=== PATIENT | female | born 1965 | race Caucasian/White ===

== ENCOUNTER 2019-01-04 12:54 | Emergency (ER) | payer BC ==
[2019-01-04] MEDS ORDERED: Ketorolac 60 MG/2 ML SDV ONE (13:15)
--- NOTE | 2019-01-04 13:20 | EDM.PDOC ---
ED HPI GENERAL MEDICAL PROBLEM - General Chief Complaint: Flank Pain Stated Complaint: KIDNEY PAIN LEFT SIDE Time Seen by Provider: 01/04/19 13:00 Source of Information: Reports: Patient History Limitations: Reports: No Limitations - History of Present Illness INITIAL COMMENTS - FREE TEXT/NARRATIVE: This patient presents to the ED for evaluation of left flank pain. She states she had some pain in the same a couple of weeks ago that went away without intervention. The pain started earlier today and is sharp and localized to the left flank area. She also has some pain in her left pelvic area. She denies dysuria, frequency or urgency. She has a history of kidney stones. She denies other concerns or complaints. Onset: Today, Sudden Onset Date: 01/04/19 Onset Time: 10:00 Duration: Getting Worse Location: Reports: Upper Extremity, Left Severity: Moderate Improves with: Reports: None Worsens with: Reports: None Associated Symptoms: Reports: No Other Symptoms ED ROS GENERAL - Review of Systems Review Of Systems: See Below Constitutional: Denies: Fever HEENT: Reports: No Symptoms Respiratory: Denies: Shortness of Breath, Cough Cardiovascular: Denies: Chest Pain Endocrine: Reports: No Symptoms GI/Abdominal: Reports: Decreased Appetite. Denies: Abdominal Pain, Nausea, Vomiting : Reports: Flank Pain. Denies: Frequency, Hematuria, Urgency Musculoskeletal: Reports: No Symptoms Skin: Reports: No Symptoms Neurological: Reports: No Symptoms ED EXAM, RENAL/ - Physical Exam Exam: See Below Exam Limited By: No Limitations General Appearance: Alert, WD/WN, Mild Distress Eye Exam: Bilateral Eye: PERRL Ears: Normal External Exam Nose: Normal Inspection Throat/Mouth: Normal Inspection Head: Atraumatic, Normocephalic Neck: Supple, Non-Tender, Full Range of Motion Respiratory/Chest: No Respiratory Distress, Lungs Clear, Normal Breath Sounds, No Accessory Muscle Use Cardiovascular: Regular Rate, Rhythm GI/Abdominal: Normal Bowel Sounds, Soft, Non-Tender, No Organomegaly, Other ( mild left pelvic tenderness) Neurological: Alert, Oriented Psychiatric: Normal Affect, Normal Mood Skin Exam: Warm, Dry, Intact Course - Orders/Labs/Meds Orders: Active Orders 24 hr Category Date Time Status Kidney Stone Protocol [CT] Stat Exams 01/04/19 14:16 Ordered Labs: Laboratory Tests 01/04/19 Range/Units 14:00 Urine Color Yellow Urine Appearance Cloudy (CLEAR) Urine pH 6.0 (5.0-8.0) Ur Specific [place] >= 1.030 (1.003-1.030) Urine Protein 100 H (NEGATIVE) mg/dL Urine Glucose (UA) Negative (NEGATIVE) mg/dL Urine Ketones Negative (NEGATIVE) mg/dL Urine Occult Blood Large H (NEGATIVE) Urine Nitrite Negative (NEGATIVE) Urine Bilirubin Negative (NEGATIVE) Urine Urobilinogen 0.2 (0.2-1.0) E.U./dL Ur Leukocyte Esterase Negative (NEGATIVE) Urine RBC >100 H /HPF Urine WBC 0-5 H /HPF Ur Squamous Epith Cells Few /HPF Urine Bacteria Few /HPF Meds: Medications Discontinued Medications Generic Name Dose Route Start Last Admin Trade Name Freq PRN Reason Stop Dose Admin Ketorolac Tromethamine Confirm 01/04/19 13:15 01/04/19 13:10 Toradol Administered 01/04/19 13:16 60 mg Dose Administration 60 mg .ROUTE .STK-MED ONE Morphine Sulfate 5 mg 01/04/19 14:18 01/04/19 13:25 Morphine IM 01/04/19 14:19 5 mg ONETIME ONE Administration - Re-Assessments/Exams Free Text/Narrative Re-Assessment/Exam: 01/04/19 15:49 This patient presents with left flank pain. Differential Diagnosis considered included ureterolithiasis, UTI, pyelonephritis, appendicitis, colitis, GIB, diverticulitis, volvulus, ectopic, cyst, , Signs and symptoms consistent with ureterolithiasis. This was confirmed on CT. Given the size of the stone, it is likely that the patient will be able to pass this. Patients pain is controlled in the ED and she was given flomax and vicodin for home use. There is no signs of infected stone. Tolerates PO. Patient is hemodynamically stable in the ED and plan is home with recheck by primary care physician in 2-3 days if she is not better. She should return to the ED if symptoms worsen. Ureterolithiasis precautions for home. Questions were answered. Departure - Departure Time of Disposition: 14:00 Disposition: 20 Condition: Good Clinical Impression: Kidney stone on left side - Discharge Information *PRESCRIPTION DRUG MONITORING PROGRAM REVIEWED*: No *COPY OF PRESCRIPTION DRUG MONITORING REPORT IN PATIENT RONALD: No Instructions: Acetaminophen; Hydrocodone tablets or capsules, Kidney Stones, [id number], Tamsulosin capsules Referrals: PCP,None [Primary Care Provider] - Forms: ED Department Discharge Care Plan Goals: flomax 0.4mg daily x 5 days, vicodin 5/325 one or two tablets every 6 to 8 hours as needed for severe pain. - My Orders Last 24 Hours: My Active Orders 01/04/19 14:16 Kidney Stone Protocol [CT] Stat - Assessment/Plan Last 24 Hours: My Active Orders 01/04/19 14:16 Kidney Stone Protocol [CT] Stat
[2019-01-04] MEDS ORDERED: Morphine 10 MG/ML Syringe IM ONE (14:18)
--- NOTE | 2019-01-04 18:16 | CT ---
DATE OF SERVICE: 01/04/19 CLINICAL DATA: kidney stone UNENHANCED ABDOMEN AND PELVIC CT: Multislice acquisition through the abdomen and pelvis without IV or oral contrast was performed. No priors. The lung bases are clear. The liver is normal size with homogeneous attenuation. No focal hepatic lesions. The gallbladder appears normal. No calcified gallstones. The spleen appears normal. The pancreas appears normal. The right and left adrenals appear normal. There are small nonobstructing renal calculi bilaterally. There is a 5 mm distal ureteral calculus on the left located in the distal left ureter just proximal to the ureterovesical junction. There is hydronephrosis and hydroureter proximal to it consistent with obstruction. The left kidney also appears to be edematous with minimal perinephric fat stranding most likely related to obstruction. Pyelonephritis should be considered. The kidneys and collecting systems are otherwise unremarkable. There is a small amount of fluid within the bladder. It appears grossly normal. The appendix is not dilated. No evidence of appendicitis. There is diverticulosis of the colon. No evidence of diverticulitis. There is a 4.2 cm fluid density lesion within the right ovary. This may be multiple physiologic ovarian cysts. A septated ovarian lesion including cystic ovarian neoplasm should at least be considered. There is a small low density lesion in the left ovary also. Followup ultrasound is recommended to further evaluate these. No free air. No free fluid. No dilated loops of bowel. No adenopathy. No aortic aneurysm. There is a small umbilical hernia containing fat. IMPRESSION: 1. A 5 mm distal ureteral calculus on left with obstruction. 2. Enlarged right ovary with fluid density lesions which may be multiple physiologic ovarian cysts or a septated cystic lesion. Followup ultrasound is recommended to further evaluate and confirm resolution. 3. Other findings as discussed above. [id number] [facility]
== END 2019-01-04 15:10 | disposition home or self-care (01) ==
LOC: LB.ED 12:54
DX: N20.2 Calculus of kidney with calculus of ureter (principal)
CPT/HCPCS: 74176; 81001; 96372; 99284; J1885; J2270

== ENCOUNTER 2020-09-15 20:03 | Emergency (ER) | payer BC ==
[2020-09-15] MEDS ORDERED: Ketorolac 60 MG/2 ML SDV IM ONE (20:19)
--- NOTE | 2020-09-15 20:37 | EDM.PDOC ---
ED HPI GENERAL MEDICAL PROBLEM - General Chief Complaint: General Stated Complaint: hematuria Time Seen by Provider: 09/15/20 20:15 Source of Information: Reports: Patient History Limitations: Reports: No Limitations - History of Present Illness INITIAL COMMENTS - FREE TEXT/NARRATIVE: left flank plan, h/o kidney stones. patient presented to the ER with a 2 days h/o of left flank pain, non radiating. No fever or chills. mild nausea but no emesis. h/o kidney stones in the past. last was December/2018. passed with out intervention. OTC meds didn't help with the pain. she reports hematuria, frequency and decreased urine output today. Reports pain 8 out of 10 Onset: Sudden, Gradual Duration: Day(s): (2) Quality: Reports: Sharp Severity: Severe Improves with: Reports: None Worsens with: Reports: None Treatments [employer]: Reports: Acetaminophen, NSAIDS - Related Data Allergies Allergy/AdvReac Type Severity Reaction Status Date / Time latex Allergy Rash Verified 01/04/19 17:05 Penicillins Allergy Rash Verified 01/04/19 17:05 Home Meds: Home Meds NK [No Known Home Meds] 01/04/19 [History] Past Medical History HEENT History: Reports: None Cardiovascular History: Reports: None Respiratory History: Reports: None Gastrointestinal History: Reports: None Genitourinary History: Reports: Renal Calculus ED ROS GENERAL - Review of Systems Review Of Systems: See Below Constitutional: Reports: No Symptoms HEENT: Reports: No Symptoms Respiratory: Reports: No Symptoms Cardiovascular: Reports: No Symptoms GI/Abdominal: Reports: Abdominal Pain : Reports: Flank Pain, Hematuria Musculoskeletal: Reports: No Symptoms Skin: Reports: No Symptoms Neurological: Reports: No Symptoms ED EXAM, GENERAL - Physical Exam Exam: See Below Exam Limited By: No Limitations General Appearance: Alert, WD/WN, No Apparent Distress Throat/Mouth: Normal Inspection Head: Atraumatic Respiratory/Chest: No Respiratory Distress, Lungs Clear Cardiovascular: Normal Peripheral Pulses GI/Abdominal: Normal Bowel Sounds Neurological: Alert, Oriented Course - Vital Signs Last Recorded V/S: Last Vital Signs Temp 34.4 C L 09/15/20 20:12 Pulse 92 09/15/20 20:12 Resp 20 09/15/20 20:12 BP 182/121 H 09/15/20 20:12 Pulse Ox - Orders/Labs/Meds Orders: Active Orders 24 hr Category Date Time Status Ondansetron [Zofran ODT] Med 09/15/20 20:45 Active 4 mg PO ONETIME PRN Medication Orders Ondansetron HCl (Zofran Odt) 4 mg PO ONETIME PRN PRN Reason: Nausea Labs: Laboratory Tests 09/15/20 Range/Units 20:30 Urine Color Red Urine Appearance Slightly cloudy (CLEAR) Urine RBC >100 H /HPF Urine WBC Not Reportable Ur Epithelial Cells Few /HPF Urine Bacteria Few /HPF Urinalysis Comment Meds: Medications Generic Name Dose Route Start Last Admin Trade Name Freq PRN Reason Stop Dose Admin Ondansetron HCl 4 mg 09/15/20 20:45 Zofran Odt PO ONETIME PRN Nausea Discontinued Medications Generic Name Dose Route Start Last Admin Trade Name Freq PRN Reason Stop Dose Admin Ketorolac Tromethamine 60 mg 09/15/20 20:19 09/15/20 20:23 Toradol IM 09/15/20 20:20 60 mg ONETIME ONE Administration - Re-Assessments/Exams Free Text/Narrative Re-Assessment/Exam: 09/15/20 20:53 UA was obtained - ++ RBC. 09/15/20 21:02 IM Toradol 60mg was given - pain down from 8 to 4 - happy with the result was d/c home on hydrocodone, Bactrim and Pyridium. Departure - Departure Time of Disposition: 21:04 Disposition: Home, Self-Care 01 Condition: Good Clinical Impression: Kidney stone on left side - Discharge Information *PRESCRIPTION DRUG MONITORING PROGRAM REVIEWED*: Not Applicable *COPY OF PRESCRIPTION DRUG MONITORING REPORT IN PATIENT RONALD: Not Applicable Forms: ED Department Discharge Sepsis Event Note (ED) - Focused Exam Vital Signs: Vital Signs Temp Pulse Resp BP 09/15/20 20:12 34.4 C L 92 20 182/121 H - Problem List & Annotations (1) Kidney stone on left side SNOMED Code(s): 72152326 Code(s): N20.0 - CALCULUS OF KIDNEY Status: Acute Current Visit: Yes - My Orders Last 24 Hours: My Active Orders 09/15/20 20:45 Ondansetron [Zofran ODT] 4 mg PO ONETIME PRN - Assessment/Plan Last 24 Hours: My Active Orders 09/15/20 20:45 Ondansetron [Zofran ODT] 4 mg PO ONETIME PRN Plan: - increase fluids intake - take pain medications and antibiotics as prescribed - return to the ER if symptoms got worse or no urine output or fever - follow up with the pcp in 3-5 days as needed
[2020-09-15] MEDS ORDERED: Ondansetron 4 MG Tab.DIS PO PRN (20:45)
[2020-09-15] MEDS ORDERED: Phenazopyridine 100 MG Tab PO STA (20:58)
[2020-09-15] MEDS ORDERED: Acetaminophen/HYDROcodone 325-5 MG Tab ONE (21:00)
[2020-09-15] MEDS ORDERED: Phenazopyridine 100 MG Tab ONE (21:00)
[2020-09-15] MEDS ORDERED: Sulfamethoxazole/Trimethoprim 800-160 MG Tab ONE (21:00)
[2020-09-15] MEDS ORDERED: Tamsulosin 0.4 MG Cap.ER PO ONE (21:06)
[2020-09-15] MEDS ORDERED: Tamsulosin 0.4 MG Cap.ER ONE (21:08)
== END 2020-09-15 21:20 | disposition home or self-care (01) ==
LOC: LB.ED 20:03
DX: N20.0 Calculus of kidney (principal); Z91.040 Latex allergy status; Z88.0 Allergy status to penicillin
CPT/HCPCS: 81001; 96372; 99283; 99284; A9270-GY; J1885